=== PATIENT | male | born 1990 | race American Indian/Alaskan Native ===

== ENCOUNTER 2020-11-23 09:47 | Day surgery (SDC) | payer OTHER ==
[~2020-11-23 09:47] MED LIST: SODIUM CHLORIDE 0.9% 1000 ML 1,000 ML IV SCH
--- NOTE | 2020-11-23 10:20 | Anesthesia Day of Surgery ---
Anesthesia Day of Surgery - Day of Surgery Patient Examined: Yes Patient H&P Reviewed: Yes Patient is NPO: Yes
--- NOTE | 2020-11-23 10:20 | Anesthesia Consultation ---
Anesthesia Consult and Med Hx Date of service: 11/23/20 - Airway Anesthetic Teeth Evaluation: Good ROM Head & Neck: Adequate Mental/Hyoid Distance: Adequate Mallampati Class: Class II Intubation Access Assessment: Probably Good - Pre-Operative Health Status ASA Pre-Surgery Classification: ASA2 Proposed Anesthetic Plan: MAC - Pulmonary Hx Smoking: No Hx Respiratory Symptoms: No - Cardiovascular System Hx Hypertension: Yes (occasional diastolic HTN on PCP checks but no rx currently) - Central Nervous System CVA: No - Endocrine Hx Renal Disease: No Hx Liver Disease: No Hx Insulin Dependent Diabetes: No Hx Non-Insulin Dependent Diabetes: No Hx Thyroid Disease: No - Other Systems Hx Substance Use: Yes (THC) Hx Obesity: No - Additional Comments Anesthesia Medical History Comments: No hx anesthetic complications.
[2020-11-23] MEDS ORDERED: LIDOCAINE MPF (2%) 20 MG/1 ML VIAL 5 ML ONE (11:14)
[2020-11-23] MEDS ORDERED: propofoL 200 MG/20 ML VIAL IV ONE ×5 (11:14→11:45)
--- NOTE | 2020-11-23 12:05 | Procedure Note ---
Date of procedure: 11/23/20 Pre-op diagnosis: GI Bleeding/Dyspepsia Post-op diagnosis: other (Small,Gastric Ulcer/ Gastritis/ Esophagitis/ R/O Celiac Disease/ Proctitis (possible source of GI Bleeding)/ R/O Microscopic Colitis/ R/O Iletitis/ Solitary Diverticuli (Transverse Colon)/ Minor,Internal Hemorrhoid) Anesthesia: [facility] [place] Surgeon: JEFFREY QUINTANA Estimated blood loss: minimal Pathology: list Specimen disposition: to lab Condition: stable
--- NOTE | 2020-11-23 12:08 | Operative Report ---
PROCEDURE: Esophagogastroduodenoscopy with biopsy. INDICATIONS: This is a 30-year-old -[place] gentleman in otherwise good health, who has lately been having dyspeptic symptoms as well as abdominal pain and some GI bleeding. EGD was done to make sure there was not any significant upper GI pathology that would account for the patient's symptoms. DESCRIPTION OF PROCEDURE: The procedure was done after getting informed consent with MAC anesthesia. Instrument was passed through the hypopharynx into the esophagus, which showed [id number] erosive esophagitis as well as gastritis and small gastric ulcers. The pylorus was patent. The duodenum in the first and the second portion appeared normal. Biopsy was done from the second part of the duodenum to rule out for celiac disease. Additional biopsy was done from the gastric antrum, gastric body and angular incisura to rule out for H. pylori and atrophic gastritis. Biopsy was also done from the distal esophagus to assess for the severity of the erosive esophagitis and from the mid esophagus to assess for possible eosinophilic esophagitis. There was minimal bleeding associated with the procedure. No complications associated with the procedure. ASSESSMENT: Gastrointestinal bleeding, no evidence of any active upper gastrointestinal bleeding noted, dyspepsia, [id number] erosive esophagitis, gastritis, small gastric ulcers, rule out celiac disease. PLAN: To treat the patient with PPI, have the patient to avoid aspirin and aspirin-related products for the next few days. Colonoscopy will be done to assess for further source of the GI bleed and the patient will be asked to follow up in the office in 1-2 weeks' time. The procedure was done in the GI lab with assistance of the GI lab team, which included REAGAN, Consuelo Johnson; William nunez and with assistance of anesthesia. JOB# [id number] SONIA/ALONSO
--- NOTE | 2020-11-23 12:10 | Operative Report ---
INDICATIONS: A 30-year-old gentleman who had been having dyspeptic symptoms and GI bleeding. EGD had shown a small gastric ulcer as well as gastritis and esophagitis, which is possibly not the source of the bleeding. Colonoscopy was done to make sure there was not any significant lower GI pathology that would account for the patient's bleeding. DESCRIPTION OF PROCEDURE: The procedure was done after getting informed consent with MAC anesthesia. Initial rectal exam was unremarkable. Instrument was passed through the rectum onto the cecum, which was identified with ileocecal valve and the appendiceal orifice. Visualization was fair. The mucosa was washed with copious amounts of water. The terminal ileum was intubated and showed normal mucosa. Biopsy was done to rule out for possible ileitis. Random biopsies were done from the cecum, ascending colon, transverse colon, descending colon, and sigmoid to rule out for possible microscopic colitis. There was a solitary diverticula noted in the transverse colon. The rectum, however, showed evidence of proctitis, which may have been the cause of the patient's bleeding and biopsies were done from the rectum to rule out for possible proctitis. ASSESSMENT: Gastrointestinal bleeding, possibly secondary to proctitis, possibly secondary to inflammatory bowel disease, rule out microscopic colitis, rule out ileitis, solitary diverticula in the transverse colon. Visualization was fair. The mucosa was washed with copious amounts of water. Significant complications associated with the procedure. There was minimal bleeding associated with the biopsies. The patient will be treated with enema and mesalamine tablets and asked to follow up in the office in 1-2 weeks' time. The patient will also be placed on PPI because of the EGD findings of a small gastric ulcer and esophagitis and gastritis. The procedure was done in the GI lab with assistance of the GI lab team, which included Consuelo KIRK; William nunez and with assistance of anesthesia. JOB# [id number] SONIA/ALONSO
--- NOTE | 2020-11-23 13:15 | Post Anesthesia Evaluation ---
- Post Anesthesia Evaluation Patient Participated: Yes Airway Patent: Yes Stable Respiratory Function: Yes Nausea/Vomiting: No Temp > 96.8F: Yes Pain Manageable: Yes Adequeate Hydration: Yes Anesthesia Complications: No
[2020-11-23 13:22] VITALS: BP 140/85
== END 2020-11-23 09:48 | disposition home or self-care (01) ==
LOC: GIO 09:47
DX: R10.9 Unspecified abdominal pain (principal); R13.10 Dysphagia, unspecified; K29.80 Duodenitis without bleeding; K29.50 Unspecified chronic gastritis without bleeding; K21.00 Gastro-esophageal reflux disease with esophagitis, without bleeding; K62.89 Other specified diseases of anus and rectum; K63.89 Other specified diseases of intestine; I10 Essential (primary) hypertension; F17.210 Nicotine dependence, cigarettes, uncomplicated; K57.30 Diverticulosis of large intestine without perforation or abscess without bleeding; Z79.899 Other long term (current) drug therapy
CPT/HCPCS: 43239; 45380; 88305; 88342; J2704; J7030